=== PATIENT | female | born 1950 | race Caucasian/White ===

== ENCOUNTER 2018-08-27 12:58 | Emergency (ER) | payer MEDICARE, BC ==
[2018-08-27 13:19] VITALS: BP 150/67
[2018-08-27] MEDS ORDERED: ONDANSETRON 4 MG TAB.RAPDIS PO ONE (13:41)
--- NOTE | 2018-08-27 13:41 | ER Document Report ---
HPI - HPI Pain Level: 5 Notes: Patient is 67-year-old female who presents to the ED complaining of left foot and great toe pain status post injury prior to arrival. Patient states that she tripped over a cement barrier and has had pain since then. Patient states that she cannot weight-bear because of the pain. She has noticed swelling to the left great toe. She is not on any blood thinners. Patient states that she did not injure any other part of her body. Denies any headache, fever, head injury, neck pain, URI, sore throat, chest pain, palpitations, syncope, cough, shortness of breath, wheeze, dyspnea, abdominal pain, nausea/vomiting/diarrhea, urinary retention, dysuria, hematuria, loss of control of bowel or bladder, numbness/tingling, muscle paralysis, or rash. Pt took tylenol as she was coming into the ED. - ROS Systems Reviewed and Negative: Yes All other systems reviewed and negative - REPRODUCTIVE Reproductive: DENIES: : Past Medical History - Social History Smoking Status: Unknown if Ever Smoked Family History: CAD - mother- [place] in her 50's, during open heart surgery, DM - mother - Past Medical History Cardiac Medical History: Reports: Hx Hypertension GI Medical History: Reports: Hx Gastroesophageal Reflux Disease, Hx Hiatal Hernia Past Surgical History: Reports: Hx Cholecystectomy, Hx Hysterectomy - Immunizations Hx Diphtheria, Pertussis, Tetanus Vaccination: Yes Vertical Provider Document - CONSTITUTIONAL Agree With Documented VS: Yes Notes: PHYSICAL EXAMINATION: GENERAL: Well-appearing, well-nourished and in no acute distress. LUNGS: Breath sounds clear to auscultation bilaterally and equal. No wheezes rales or rhonchi. HEART: Regular rate and rhythm without murmurs, rubs, gallops. Musculoskeletal: Lt foot/ankle: + swelling to the great toe with an abrasion dorsal foot. LROM to passive/active at the toes. FROM at the ankle. Strength 4 +/5 due to pain. N/V intact distal. + tenderness to the great toe and dorsal foot. No point tenderness to the malleoli b/l. Achilles intact. Extremities: No cyanosis, clubbing, or edema b/l. Peripheral pulses 2+. Capillary refill less than 3 seconds. NEUROLOGICAL: Normal speech. Normal sensory, motor exams PSYCH: Normal mood, normal affect. SKIN: see above - INFECTION CONTROL TRAVEL OUTSIDE OF THE [place] IN LAST 30 DAYS: No Course - Re-evaluation Re-evalutation: 08/27/18 14:59 Patient is an afebrile, well-hydrated, 67-year-old female who presents to the ED with a chondroid comminuted fracture of the IP joint left great toe extending into the distal joint. PE is otherwise unremarkable for any neurovascular compromise, open fracture, septic joint. Vitals are acceptable. I did speak with Dr. Fernando, we will splint and have her follow-up in their office. See x-ray result. No further labs or imaging warranted at this time. Splint was placed and crutches provided. I will send her home with some pain medication. Recheck with your PCM in 3-5 days. Call orthopedics today or tomorrow to schedule an appointment for further evaluation and management. Return to the ED with any worsening/concerning symptoms otherwise as reviewed in discharge. Patient is in agreement. - Vital Signs Vital signs: Temp Pulse Resp BP Pulse Ox 97.6 F 53 L 150/67 H 100 08/27/18 13:16 08/27/18 13:16 08/27/18 13:16 08/27/18 13:16 Procedures - Immobilization Left Foot Time completed: 14:55 Pre-Proc Neuro Vasc Exam: Normal Immobilizer type: Posterior ankle Performed by: PCT Post-Proc Neuro Vasc Exam: Normal, Unchanged from pre-exam Discharge - Discharge Clinical Impression: Toe fracture, left Qualifiers: Encounter type: initial encounter Toe: great toe Fracture type: closed Phalanx : proximal Fracture alignment: displaced Qualified Code(s): S92.412A - Displaced fracture of proximal phalanx of left great toe, initial encounter for closed fracture Condition: Stable Disposition: HOME, SELF-CARE Instructions: Splint Precautions ([facility]) Additional Instructions: Rest, Ice, Compression, Elevation Use crutches/splint as directed Tylenol/ibuprofen as needed F/u with your PCP in 3-5 days for a recheck Call orthopedics tomorrow to schedule an appointment for further evaluation and management Return to the ED with any worsening symptoms and/or development of fever, headache, chest pain, palpitations, syncope, shortness of breath, trouble breathing, abdominal pain, n/v/d, muscle weakness/paralysis, numbness/tingling, swelling, redness, or other worsening symptoms that are concerning to you. Prescriptions: Oxycodone HCl/Acetaminophen [Oxycodone-Acetaminophen 5-325] 1 each PO BID #15 tablet Forms: Elevated Blood Pressure Referrals: PATRICIA BEGUM FNP [Primary Care Provider] - Follow up as needed [facility] [Provider Group] - Follow up in 3-5 days
--- NOTE | 2018-08-27 14:16 | RADIOLOGY REPORT (SQ) ---
EXAM DESCRIPTION: ANKLE LEFT COMPLETE COMPLETED DATE/TIME: 08/27/2018 2:08 pm REASON FOR STUDY: pain s/p injury COMPARISON: None. NUMBER OF VIEWS: Three views. TECHNIQUE: AP, lateral, and oblique radiographic images acquired of the left ankle. LIMITATIONS: None. FINDINGS: MINERALIZATION: Normal. BONES: No acute fracture or dislocation. No worrisome bone lesions. JOINTS: No effusions. SOFT TISSUES: No soft tissue swelling. No foreign body. OTHER: No other significant finding. IMPRESSION: NEGATIVE STUDY OF THE LEFT ANKLE. NO RADIOGRAPHIC EVIDENCE OF ACUTE INJURY. TECHNICAL DOCUMENTATION: JOB ID: [id number] [employer]- All Rights Reserved Reading location - IP/workstation name: [email or web address]
--- NOTE | 2018-08-27 14:25 | RADIOLOGY REPORT (SQ) ---
EXAM DESCRIPTION: FOOT LEFT COMPLETE COMPLETED DATE/TIME: 08/27/2018 2:08 pm REASON FOR STUDY: pain s/p injury COMPARISON: None. NUMBER OF VIEWS: Three views. TECHNIQUE: AP, lateral and oblique radiographic images acquired of the left foot. LIMITATIONS: None. FINDINGS: MINERALIZATION: Normal. BONES: There is a comminuted fracture of the proximal phalanx of the great toe. The fracture extends into the joint space of the DIP. JOINTS: No effusions. SOFT TISSUES: No soft tissue swelling. No foreign body. OTHER: No other significant finding. IMPRESSION: Chondroid fracture of the proximal phalanx of the great toe with extension into the join t space of the DIP. TECHNICAL DOCUMENTATION: JOB ID: [id number] [employer]- All Rights Reserved Reading location - IP/workstation name: [email or web address]
[2018-08-27] MEDS ORDERED: OXYCODONE HCL IR 5 MG TABLET PO ONE (15:15)
[2018-08-27] MEDS ORDERED: HYDROCODONE/ACETAMINOPHEN 5-325 MG TABLET PO ONE (15:27)
--- NOTE | 2018-08-27 15:28 | RADIOLOGY REPORT (SQ) ---
EXAM DESCRIPTION: KNEE LEFT 2 VIEWS COMPLETED DATE/TIME: 08/27/2018 3:11 pm REASON FOR STUDY: just proximal view, tenderness associated COMPARISON: None. NUMBER OF VIEWS: Two views. TECHNIQUE: AP and lateral radiographic images acquired of the left knee. LIMITATIONS: None. FINDINGS: MINERALIZATION: Normal. BONES: No acute fracture or dislocation. No worrisome bone lesions. JOINT: No effusion. SOFT TISSUES: No soft tissue swelling. No radio-opaque foreign body. OTHER: No other significant finding. IMPRESSION: NEGATIVE STUDY OF THE LEFT KNEE. NO RADIOGRAPHIC EVIDENCE OF ACUTE INJURY. TECHNICAL DOCUMENTATION: JOB ID: [id number] [employer]- All Rights Reserved Reading location - IP/workstation name: [email or web address]
== END 2018-08-27 16:39 | disposition home or self-care (01) ==
LOC: ER 12:58
PROC: 2W3RX1Z Immobilization of Left Lower Leg using Splint (ICD-10-PCS; principal; 2018-08-27)
DX: S92.412A Displaced fracture of proximal phalanx of left great toe, initial encounter for closed fracture (principal); M79.672 Pain in left foot; M79.675 Pain in left toe(s); M79.89 Other specified soft tissue disorders; W18.40XA Slipping, tripping and stumbling without falling, unspecified, initial encounter; I10 Essential (primary) hypertension
CPT/HCPCS: 99283; 73610; 73630; 73560; 29515; A9270 ×2; S0119